=== PATIENT | female | born 1965 | race African-American/Black ===

== ENCOUNTER 2017-09-09 18:06 | Inpatient (IN) ==
[2017-09-09] MEDS ORDERED: ASPIRIN 325 MG TABLET PO STA (18:28)
[2017-09-09] MEDS ORDERED: ALUM/MAG/SIMETH/LIDO VISC 1:1 30 ML BOTTLE PO STA (18:28)
[2017-09-09] MEDS ORDERED: ONDANSETRON 4 MG/2 ML VIAL IV STA (18:28)
[2017-09-09] MEDS ORDERED: MORPHINE 4 MG/1 ML VIAL IV STA (18:28)
[2017-09-09] MEDS ORDERED: NITROGLYCERIN 2% OINT 1 INCH/GM PACK TOP STA (18:28)
[2017-09-09 18:36] LABS: Basophils # 0.1 10*3/uL (0.0-0.2); Basophils % 0.8 % (0.0-0.8); Eosinophils # 0.1 10*3/uL (0.0-0.87); Eosinophils % 1.2 % (0.00-10.9); Hemoglobin 11.1 GM/DL (12.0-16.0); Immature Granulocytes % 0.2 %; Immature Granulocytes Absolute 0.01 #; Lymphocytes # 2.8 10*3/uL (1.4-4.0); Lymphocytes % 45.5 % (21.3-54.2); Mean Corpuscular HGB Conc 32.6 GM/DL (32-36); Mean Corpuscular Hemoglobin 28 PG (27-34); Mean Corpuscular Volume 86.3 FL (87-102); Mean Platelet Volume 11.9 FL (9.6-12.0); Monocytes # 0.6 10*3/uL (0.11-0.8); Monocytes % 9.6 % (1.7-12.7); Neutrophils # 2.6 10*3/uL (1.4-7.4); Neutrophils % 42.7 % (38.7-73.9); Platelet Count 218 T/CUMM (130-400); Red Blood Count 3.94 MC/CUMM (3.8-5.5); Red Cell Distribution Width 12.6 % (9.3-17.3); White Blood Count 6.1 T/CUMM (4-12)
[2017-09-09 18:59] LABS: PT Patient Result 10.2 SECS
[2017-09-09 19:03] LABS: Alanine Aminotransferase 21 U/L (13-56); Albumin 3.3 G/DL (3.4-5.0); Alkaline Phosphatase 131 U/L (45-117); Aspartate Amino Transferase 15 U/L (0-37); Bilirubin,Total < 0.39 MG/DL (0.2-1.0); Blood Urea Nitrogen 17 MG/DL (7-18); Calcium 8.6 MG/DL (8.5-10.1); Glucose 127 MG/DL (74-106); Osmolality,Calculated 286.1 MOS/KG (273-304); Potassium 3.6 MMOL/L (3.5-5.1); Sodium 142 MMOL/L (136-145); Total Protein 7.4 G/DL (6.4-8.3)
[2017-09-09] MEDS ORDERED: MORPHINE 4 MG/1 ML VIAL IV PRN (21:33)
[2017-09-09] MEDS ORDERED: CYCLOBENZAPRINE 10 MG TABLET PO PRN (21:33)
[2017-09-09] MEDS ORDERED: IBUPROFEN 600 MG TABLET PO PRN (21:33)
[2017-09-09] MEDS ORDERED: MAGNESIUM SULF RIDER 2 GM in PREMIX 1 EACH IV PRN (21:33)
[2017-09-09] MEDS ORDERED: MAGNESIUM SULF RIDER 4 GM in PREMIX 1 EACH IV PRN (21:33)
[2017-09-09] MEDS ORDERED: SODIUM CHLORIDE 0.9% 1,000 ML IV SCH (21:33)
[2017-09-09] MEDS ORDERED: ONDANSETRON 4 MG/2 ML VIAL IV PRN (21:33)
[2017-09-09] MEDS ORDERED: ALBUTEROL 2.5 MG/3 ML NEB RESP TX PRN (21:33)
[2017-09-09] MEDS ORDERED: DEXTROSE 50% 25 GM/50 ML VIAL IV PRN (21:33)
[2017-09-09] MEDS ORDERED: MONTELUKAST 10 MG TABLET PO PRN (21:33)
[2017-09-09] MEDS ORDERED: GLUCAGON 1 MG VIAL IM PRN (21:33)
[2017-09-09] MEDS: ENOXAPARIN 80 MG/0.8 ML SYRINGE SUBCUT SCH (22:46)
[2017-09-09] MEDS: INSULIN REGULAR 100 UNIT/ML SUBCUT SCH (22:50)
[2017-09-09] MEDS: glipiZIDE 5 MG TABLET PO SCH (22:50)
[2017-09-10] MEDS: NITROGLYCERIN 2% OINT 1 INCH/GM PACK TOP SCH ×3 (01:10→12:56)
[2017-09-10 01:51] LABS: Basophils % 0.5 % (0.0-0.8); Eosinophils # 0.1 10*3/uL (0.0-0.87); Eosinophils % 1.7 % (0.00-10.9); Hematocrit 33.5 VOL% (35.7-47.0); Hemoglobin 11.3 GM/DL (12.0-16.0); Immature Granulocytes % 0.2 %; Immature Granulocytes Absolute 0.01 #; Lymphocytes # 3.6 10*3/uL (1.4-4.0); Lymphocytes % 54.6 % (21.3-54.2); Mean Corpuscular HGB Conc 33.7 GM/DL (32-36); Mean Corpuscular Hemoglobin 29 PG (27-34); Monocytes # 0.6 10*3/uL (0.11-0.8); Monocytes % 9.3 % (1.7-12.7); Neutrophils # 2.2 10*3/uL (1.4-7.4); Neutrophils % 33.7 % (38.7-73.9); Platelet Count 201 T/CUMM (130-400); Red Blood Count 3.94 MC/CUMM (3.8-5.5); Red Cell Distribution Width 12.8 % (9.3-17.3); White Blood Count 6.6 T/CUMM (4-12)
[2017-09-10 02:21] LABS: Alanine Aminotransferase 17 U/L (13-56); Albumin 2.9 G/DL (3.4-5.0); Alkaline Phosphatase 119 U/L (45-117); Aspartate Amino Transferase 15 U/L (0-37); Bilirubin,Total < 0.39 MG/DL (0.2-1.0); Blood Urea Nitrogen 16 MG/DL (7-18); Calcium 8.4 MG/DL (8.5-10.1); Cholesterol 185 MG/DL (50-200); Glucose 122 MG/DL (74-106); HDL Cholesterol 73 MG/DL (40-60); Osmolality,Calculated 284.1 MOS/KG (273-304); Potassium 3.2 MMOL/L (3.5-5.1); Risk Ratio 2.53; Sodium 142 MMOL/L (136-145); Thyroid Stimulating Hormone 0.089 uIU/ml (0.358-3.74); Total Protein 6.8 G/DL (6.4-8.3); Triglycerides 51 MG/DL (2-150); VLDL CHOLESTEROL 10.2 MG/DL
[2017-09-10 02:25] LABS: Eosinophils 1 % (0-10); Lymphocytes 51 % (20-55); Segmented Neutrophils 38 % (50-85); Total Cells Counted 100
[2017-09-10 02:27] LABS: Atypical Lymphocytes Few
[2017-09-10] MEDS: POTASSIUM CHLORIDE 20 MEQ TABLET PO PRN ×3 (04:27→12:53)
[2017-09-10] MEDS ORDERED: metFORMIN 500 MG TABLET PO SCH (08:00)
[2017-09-10] MEDS: INSULIN REGULAR 100 UNIT/ML SUBCUT SCH ×2 (08:32→12:56)
[2017-09-10] MEDS: glipiZIDE 5 MG TABLET PO SCH (08:33)
[2017-09-10] MEDS: ENOXAPARIN 80 MG/0.8 ML SYRINGE SUBCUT SCH (08:34)
[2017-09-10] MEDS ORDERED: GABAPENTIN 100 MG CAPSULE PO SCH (09:00)
[2017-09-10] MEDS ORDERED: DILTIAZEM CD 180 MG CAPSULE PO SCH (09:00)
[2017-09-10] MEDS ORDERED: PANTOPRAZOLE 40 MG TABLET PO SCH (09:00)
[2017-09-10] MEDS ORDERED: ASPIRIN CHEW 81 MG TABLET PO SCH (09:00)
[2017-09-10] MEDS ORDERED: POTASSIUM CHLORIDE 20 MEQ TABLET PO SCH (09:00)
[2017-09-10] MEDS ORDERED: CHOLECALCIFEROL 5,000 UNIT TABLET PO SCH (09:00)
[2017-09-10] MEDS ORDERED: POTASSIUM CHLORIDE RIDER 10 MEQ in PREMIX 1 EACH IV PRN (10:39)
[2017-09-10] MEDS ORDERED: MAGNESIUM SULF RIDER 2 GM in PREMIX 1 EACH IV PRN (10:39)
[2017-09-10] MEDS ORDERED: DIAZEPAM 5 MG TABLET PO ONE (10:39)
[2017-09-10] MEDS ORDERED: diphenhydrAMINE CAP 25 MG CAPSULE PO ONE (10:39)
[2017-09-10] MEDS ORDERED: SODIUM CHLORIDE 0.45% 1,000 ML IV SCH (11:00)
[2017-09-10] MEDS ORDERED: HEPARIN/NACL 0.9% 2 UNITS/ML 1,000 ML IV ONE (13:44)
[2017-09-10] MEDS ORDERED: fentaNYL 100 MCG/2 ML VIAL ONE (14:11)
[2017-09-10] MEDS ORDERED: MIDAZOLAM 2 MG/2 ML VIAL ONE (14:11)
[2017-09-10] MEDS ORDERED: LIDOCAINE 1%/EPI INJ 20 ML VIAL ONE (14:21)
[2017-09-10 20:02] VITALS: BP 138/77
== END 2017-09-10 20:00 | disposition home or self-care (01) | DRG 287 ==
LOC: EDUNIT# → EDBD → N.ED 18:06 → N.EDINP 20:50 → N.TELEN 21:27
PROVIDERS: ADMIT Internal Medicine Interventional Cardiology; ATTEND Internal Medicine Interventional Cardiology
PROC: CLCCHCL (ICD-10-PCS; 2017-09-10 14:15)